=== PATIENT | female | born 1985 | race Caucasian/White ===

== ENCOUNTER → 2016-11-19 | Outpatient (CLI) | payer BC ==
--- NOTE | 2016-11-19 14:43 | KCIC ---
PROCEDURE Renal ultrasound. HISTORY Flank pain and urinary frequency. TECHNIQUE Real-time ultrasound imaging of the kidneys and the bladder is performed COMPARISON None. FINDINGS Urinary bladder is normal. Right and left ureteral jets are identified. No significant postvoid residual. The right kidney length is 12.2 cm, left kidney 11.8 cm. There is no hydronephrosis. Corticomedullary differentiation is preserved. Renal cortical echotexture is normal. IMPRESSION No hydronephrosis. Bilateral ureteral jets are seen. Urinary bladder is normal. Electronically signed by: Herb Reyes MD (November 19, 2016 14:42:36)
== END | disposition home or self-care (01) ==
LOC: KCIC US 13:19
PROVIDERS: ATTEND Nurse Practitioner
DX: R35.0 Frequency of micturition (principal)
CPT/HCPCS: 76770